=== PATIENT | male | born 1940 | race Caucasian/White ===

== ENCOUNTER → 2024-02-14 09:35 | Outpatient (REF) | payer MEDICARE, BC, SELFPAY ==
[2024-02-14 10:31] LABS: Albumin 4.3 g/dl (3.5-5.0); Blood Urea Nitrogen 19 mg/dl (9-20); Calcium 9.1 mg/dl (8.4-10.2); Carbon Dioxide 24 mmol/L (22-30); Chloride 106 mmol/L (98-107); Glucose 216 mg/dl (70-99); Phosphorus 4.1 mg/dl (2.5-4.5); Potassium 4.5 mmol/L (3.5-5.1); Sodium 137 mmol/L (135-145); eGFR 46.19
== END ==
LOC: REG 09:35
PROVIDERS: ATTENDING PHYSICIAN Internal Medicine; FAMILY PHYSICIAN Family Medicine
DX: N18.30 Chronic kidney disease, stage 3 unspecified (principal)
CPT/HCPCS: 36415; 80069

== ENCOUNTER → 2024-02-16 12:55 | Outpatient (REF) | payer MEDICARE, BC, SELFPAY ==
[2024-02-16 15:05] LABS: Protein/creatinine Ratio 0.4; Urine Protein 33 mg/dl
[2024-02-19 21:48] LABS: 24 Hour Urine Total Volume Random mL; Urine Collection Length Random hr; Urine Free Kappa Light Chains 251.99 mg/L (0.00-32.90)
== END ==
LOC: REG 12:55
PROVIDERS: ATTENDING PHYSICIAN Internal Medicine; FAMILY PHYSICIAN Family Medicine
DX: N18.30 Chronic kidney disease, stage 3 unspecified (principal)
CPT/HCPCS: 82570; 83521; 84156; 86335

== ENCOUNTER → 2024-04-23 09:46 | Outpatient (REF) | payer MEDICARE, BC, SELFPAY ==
[2024-04-23 12:57] LABS: % Eosinophils 2.2 % (0-6); % Immature Granulocytes 0.5 % (0-0.5); % Lymphocytes 27.5 % (20.5-51.1); % Monocytes 10.3 % (1.7-9.3); % Neutrophils 58.5 % (42.2-75.2); Absolute Basophils 0.1 10^3/uL (0-0.2); Absolute Eosinophils 0.1 10^3/uL (0-0.7); Absolute Lymphocytes 1.7 10^3/uL (1.2-3.4); Absolute Monocytes 0.6 10^3/uL (0.1-0.6); Absolute Neutrophils 3.5 10^3/uL (1.4-6.5); Hematocrit 33.1 % (39.0-52.0); Hemoglobin 11.4 g/dL (13.0-18.0); Mean Corp Hgb Conc. 34.4 g/dL (33.0-37.0); Mean Corpuscular Hgb 31.1 pg (27.0-31.0); Mean Corpuscular Volume 90.4 fL (80.0-94.0); Mean Platelet Volume 9.5 fL (7.4-10.4); Nucleated Red Blood Cells % 0 % (-); Platelet Count 198 10^3/uL (130-400); Red Blood Cell Count 3.66 10^6/uL (4.70-6.10); Red Cell Dist. Width 13.2 % (11.5-14.5)
[2024-04-23 13:30] LABS: ALT (SGPT) 31 U/L (0-50); AST (SGOT) 32 U/L (17-59); Alkaline Phosphatase 64 U/L (38-126); Blood Urea Nitrogen 22 mg/dl (9-20); Calcium 9.3 mg/dl (8.4-10.2); Carbon Dioxide 24 mmol/L (22-30); Chloride 107 mmol/L (98-107); Glucose 158 mg/dl (70-99); HDL Cholesterol 37 mg/dl; LDL Cholesterol, Calculated 11 mg/dl; Phosphorus 3.9 mg/dl (2.5-4.5); Potassium 4.4 mmol/L (3.5-5.1); Sodium 139 mmol/L (135-145); Total Bilirubin 0.6 mg/dl (0.2-1.3); Total Cholesterol 63 mg/dl (50-199); Total Protein 6.9 g/dl (6.3-8.2); Triglyceride 77 mg/dl (10-149); Very Low Density Lipoprotein 15 mg/dl (0-30); eGFR 50.18
[2024-04-23 14:02] LABS: TSH Reflex To Free T4 1.61 uIU/ml (0.47-4.68)
[2024-04-23 14:24] LABS: Glycohemoglobin (HgbA1c) 7.9 % (4.0-5.6)
== END ==
LOC: HWLAB 09:46
PROVIDERS: ATTENDING PHYSICIAN Internal Medicine; FAMILY PHYSICIAN Physician Assistant Medical
DX: E11.65 Type 2 diabetes mellitus with hyperglycemia (principal); I12.9 Hypertensive chronic kidney disease with stage 1 through stage 4 chronic kidney disease, or unspecified chronic kidney disease; E78.5 Hyperlipidemia, unspecified; N18.31 Chronic kidney disease, stage 3a; I25.10 Atherosclerotic heart disease of native coronary artery without angina pectoris; D64.9 Anemia, unspecified; I10 Essential (primary) hypertension
CPT/HCPCS: 36415; 80053; 80061; 83036; 84100; 84443; 85025

== ENCOUNTER → 2024-07-17 09:59 | Outpatient (REF) | payer MEDICARE, BC, SELFPAY ==
[2024-07-17 11:13] LABS: % Basophils 0.8 % (0-2); % Immature Granulocytes 0.3 % (0-0.5); % Lymphocytes 20.9 % (20.5-51.1); Absolute Basophils 0.1 10^3/uL (0-0.2); Absolute Eosinophils 0.1 10^3/uL (0-0.7); Absolute Lymphocytes 1.3 10^3/uL (1.2-3.4); Absolute Monocytes 0.5 10^3/uL (0.1-0.6); Absolute Neutrophils 4.1 10^3/uL (1.4-6.5); Hematocrit 34.1 % (39.0-52.0); Hemoglobin 11.8 g/dL (13.0-18.0); Mean Corp Hgb Conc. 34.6 g/dL (33.0-37.0); Mean Corpuscular Hgb 32.1 pg (27.0-31.0); Mean Corpuscular Volume 92.7 fL (80.0-94.0); Mean Platelet Volume 9.2 fL (7.4-10.4); Nucleated Red Blood Cells % 0 % (-); Platelet Count 177 10^3/uL (130-400); Red Blood Cell Count 3.68 10^6/uL (4.70-6.10); Red Cell Dist. Width 13.3 % (11.5-14.5); Reticulocyte Count 1.3 % (0.4-2.8)
[2024-07-17 11:39] LABS: C-Reactive Protein < 5.00 mg/L (0.0-10.00)
[2024-07-17 11:39] LABS: ALT (SGPT) 21 U/L (0-50); AST (SGOT) 25 U/L (17-59); Alkaline Phosphatase 62 U/L (38-126); Blood Urea Nitrogen 17 mg/dl (9-20); Calcium 9.6 mg/dl (8.4-10.2); Carbon Dioxide 24 mmol/L (22-30); Chloride 107 mmol/L (98-107); Direct Bilirubin 0.2 mg/dl (0.0-0.4); Glucose 115 mg/dl (70-99); Iron 91 ug/dl (49-181); LDH 198 U/L (120-246); Phosphorus 3.5 mg/dl (2.5-4.5); Potassium 4.3 mmol/L (3.5-5.1); Sodium 141 mmol/L (135-145); Total Bilirubin 0.7 mg/dl (0.2-1.3); Total Protein 6.6 g/dl (6.3-8.2); eGFR 50.18
[2024-07-17 11:49] LABS: Percent Saturation 30 % (20-50); Total Iron Binding Capacity 300 ug/dl (261-462)
[2024-07-17 11:55] LABS: Urine Protein 64 mg/dl (0-12)
[2024-07-17 12:15] LABS: Ferritin 25.8 ng/ml (17.9-464.0)
[2024-07-17 12:37] LABS: Erythrocyte Sed Rate 17 mm/hour (0-20)
[2024-07-17 12:46] LABS: Folate > 20.0 ng/ml (2.76-20); Vitamin B12 756 pg/ml (239-931)
[2024-07-19 00:07] LABS: Erythropoietin (EPO) 20 mU/mL (4-27)
[2024-07-19 06:50] LABS: Beta-2-Microglobulin 4.2 mg/L (<=3.0)
[2024-07-19 07:05] LABS: Haptoglobin 151 mg/dL (30-200)
[2024-07-19 09:39] LABS: ANA, IgG Reflex to HEp-2 None Detected (None Detected)
== END ==
LOC: REG 09:59
PROVIDERS: ATTENDING PHYSICIAN Nurse Practitioner Adult Health; FAMILY PHYSICIAN Physician Assistant Medical; REFERRING PHYSICIAN Internal Medicine
DX: N18.30 Chronic kidney disease, stage 3 unspecified (principal); D64.9 Anemia, unspecified; N18.9 Chronic kidney disease, unspecified; Z79.899 Other long term (current) drug therapy
CPT/HCPCS: 36415; 80053; 82232; 82248; 82570; 82607; 82668; 82728; 82746; 82784; 83010; 83521; 83540; 83550; 83615; 84100; 84155; 84156; 84165; 85025; 85045; 85652; 86038; 86140; 86334; 86880

== ENCOUNTER → 2024-07-19 12:42 | Outpatient (REF) | payer MEDICARE, BC, SELFPAY ==
[2024-07-19 13:47] LABS: 24 Hour Urine Total Volume 1000 ml
[2024-07-19 15:10] LABS: Urine Protein 48 mg/dl (0-12)
== END ==
LOC: REG 12:42
PROVIDERS: ATTENDING PHYSICIAN Nurse Practitioner Adult Health
DX: D64.9 Anemia, unspecified (principal); N18.9 Chronic kidney disease, unspecified
CPT/HCPCS: 81050; 84156

== ENCOUNTER 2024-10-26 18:11 | Emergency (ER) | payer MEDICARE, BC, SELFPAY ==
[2024-10-26 18:18] VITALS: BP 130/58
[2024-10-26 20:35] VITALS: BMI 26.8
--- NOTE | 2024-10-26 20:55 | ED.GENMED ---
History of Present Illness
General
Chief Complaint: Musculo-Skeletal Complaint
Source: patient
Time Seen by Provider: 10/26/24 20:45
History of Present Illness
History of Present Illness:
83-year-old male presents to the emergency room complaining of pain in the right knee. Patient states he was stepping up stairs when his right knee gave out. He also heard a crack. He has been having difficulty weightbearing due to pain since
then. No fever or chills. No other injuries. Patient does note he has been having some discomfort of this knee for the past 2 or 3 weeks. His primary care doctor suggested that he may have a meniscus injury at that time. This is the first time
his knee is actually giving out however.
Past History
Past History
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
ED Past Surgical History: Appendectomy, Cardiac (Stents X 4, Loop recorder) and Other (Brain mass right frontal)
Social History
Tobacco: Former smoker
Alcohol: None
Drug: None
Personal:
Living: alone
Phy Exam
Physical Exam
Physical Exam:
General: Awake, Alert, Oriented X3. No acute distress.
Vitals: unremarkable
Head: Atraumatic
Eyes: Pupils equal, EOMI
Throat: Airway intact, no exudates
Neck: Trachea midline
Neuro: Nonfocal
Skin: Warm, dry, no rash
Extremities: pulses equal b/l, no edema, no effusion noted to the right leg. Examination of the posterior thigh does not reveal any bulging or swollen area to suggest muscle tear. There is no pain to palpation of the calf. There is some pain with
flexion extension over the lateral aspect of the knee.
Course
Orders/Labs/Results
Orders:
Orders
10/26/24 18:21
Knee, Right 4 or More Views [CR Knee- Right 4 Or More View*] Urgent
Comment:
Reason For Exam: pain
10/26/24 18:22
Tibia/Fibula, Right 2 View [CR Leg Tibia/fibula Right 2 Vw] Urgent
Comment:
Reason For Exam: pain
10/26/24 20:58
Knee Immobilizer Right-Treatme ONCE
Acetaminophen [Tylenol] 1,000 mg PO NOW STA
Vital Signs
Initial and Last Documented VS:
Initial Vital Signs
Temp Pulse Resp BP Pulse Ox
97.5 F 63 16 130/58 98
10/26/24 18:18 10/26/24 18:18 10/26/24 18:18 10/26/24 18:18 10/26/24 18:18
Last Documented Vital Signs
Temp Pulse Resp BP Pulse Ox
97.5 F 63 16 130/58 98
10/26/24 18:18 10/26/24 18:18 10/26/24 18:18 10/26/24 18:18 10/26/24 20:35
MDM/Problems Addressed
Differential Diagnosis Includes:
Fracture, muscle tear, meniscus injury
MDM/Problems Addressed:
Physical exam does not reveal a significant effusion. Imaging shows DJD but no other abnormalities. The overall presentation seems most consistent with a meniscal injury. Patient placed in a knee immobilizer. Recommend follow-up with Ortho. No
NSAIDs given his use of Brilinta and aspirin.
*Radiology
Radiology exam reviewed: radiology read reviewed
*Critical Care Note
Total Time (30-74mins, 75-104mins- exclusive of procedures): Not Applicable
ED Attending Note
-
Portions of this chart may have been created with voice recognition software.� Occasional wrong word or��sound alike� substitutions may have occurred due to the inherent limitations of voice recognition software.
Discharge Plan
Departure
Patient Disposition: Home (Routine Discharge)
Date of Disposition: 10/26/24
Time of Disposition: 20:56
Patient with high blood pressure during this ER visit?: No
Condition: Good
Discharge Problem:
Knee joint pain
Instructions: Knee Immobilizer (DC), Knee Pain (DC)
Prescriptions:
No Action
glipizide 5 MG tablet
5 mg PO BID
sitagliptin phos-metformin [Janumet] 1 EACH tablet
1 tab PO BID
rosuvastatin 20 MG tablet
20 mg PO QPM
carvedilol 6.25 MG tablet
6.25 mg PO BID Qty: 60 0RF
isosorbide mononitrate 30 MG tablet extended release 24 hr
30 mg PO DAILY Qty: 30 0RF
nifedipine 30 MG tablet extended release
30 mg PO DAILY Qty: 30 0RF
aspirin 81 MG tablet,delayed release (DR/EC)
81 mg PO DAILY 0RF
ticagrelor [Brilinta] 90 MG tablet
90 mg PO BID Qty: 60 0RF
Referrals:
Fermin Melvin MD [Active] -
Activity Restrictions/Additional Instructions:
I believe your knee buckling and knee pain is related to a meniscus issue. You should follow-up with Dr. Melvin. We have provided you with a knee immobilizer which I would wear while you are awake for the next 2 or 3 days. Weight-bear as
tolerated. He may benefit from using a walker to help take some weight off of that leg.
Interventions
Interventions:
*Risk Screen - Suicide Last Done: 10/26/24 20:35
*General Assessment Last Done: 10/26/24 20:35
*Neglect/Abuse Screening Last Done: 10/26/24 20:35
ED- Fall Risk Assessment Last Done: 10/26/24 20:35
*ED COVID-19 Vaccine History Last Done: 10/26/24 20:35
*Nursing Disposition Last Done: 10/26/24 21:28
ED-Musculoskeletal Assessment Last Done: 10/26/24 20:35
Discharge Date and Time
Discharge Date/Time: 10/26/24 21:29
Print Language: SWAZI
[2024-10-26] MEDS: TYLENOL 1000 MG PO (21:04)
== END 2024-10-26 21:29 | disposition home or self-care (01) ==
LOC: EMR 18:11
PROVIDERS: EMERGENCY PHYSICIAN Emergency Medicine; FAMILY PHYSICIAN Physician Assistant Medical
DX: S89.91XA Unspecified injury of right lower leg, initial encounter (principal); X50.1XXA Overexertion from prolonged static or awkward postures, initial encounter; I25.10 Atherosclerotic heart disease of native coronary artery without angina pectoris; E11.9 Type 2 diabetes mellitus without complications; I10 Essential (primary) hypertension; E78.00 Pure hypercholesterolemia, unspecified; I25.2 Old myocardial infarction; Z86.73 Personal history of transient ischemic attack (TIA), and cerebral infarction without residual deficits; Z87.891 Personal history of nicotine dependence; Z95.5 Presence of coronary angioplasty implant and graft; Z90.49 Acquired absence of other specified parts of digestive tract; Z79.01 Long term (current) use of anticoagulants; Z79.82 Long term (current) use of aspirin
CPT/HCPCS: 29505; 99283; 73564; 73590

== ENCOUNTER → 2024-11-07 10:49 | Outpatient (REF) | payer MEDICARE, BC, SELFPAY | LOC: PAVMRI 10:49 | PROVIDERS: ATTENDING PHYSICIAN Orthopaedic Surgery; FAMILY PHYSICIAN Physician Assistant Medical | DX: M25.861 Other specified joint disorders, right knee (principal) | CPT/HCPCS: 73721 ==

== ENCOUNTER → 2024-12-09 09:30 | Outpatient (REF) | payer MEDICARE, BC, SELFPAY ==
[2024-12-09 12:40] LABS: % Basophils 0.8 % (0-2); % Eosinophils 2.2 % (0-6); % Immature Granulocytes 0.2 % (0-0.5); % Neutrophils 66.8 % (42.2-75.2); Absolute Basophils 0.1 10^3/uL (0-0.2); Absolute Eosinophils 0.1 10^3/uL (0-0.7); Absolute Lymphocytes 1.4 10^3/uL (1.2-3.4); Absolute Monocytes 0.5 10^3/uL (0.1-0.6); Absolute Neutrophils 4.3 10^3/uL (1.4-6.5); Hematocrit 34.1 % (39.0-52.0); Hemoglobin 11.3 g/dL (13.0-18.0); Mean Corp Hgb Conc. 33.1 g/dL (33.0-37.0); Mean Corpuscular Hgb 31.4 pg (27.0-31.0); Mean Corpuscular Volume 94.7 fL (80.0-94.0); Mean Platelet Volume 9.2 fL (7.4-10.4); Nucleated Red Blood Cells % 0 % (-); Platelet Count 200 10^3/uL (130-400); White Blood Cell Count 6.5 10^3/uL (4.8-10.8)
[2024-12-09 12:52] LABS: ALT (SGPT) 20 U/L (0-50); AST (SGOT) 26 U/L (17-59); Alkaline Phosphatase 68 U/L (38-126); Blood Urea Nitrogen 31 mg/dl (9-20); Carbon Dioxide 24 mmol/L (22-30); Chloride 102 mmol/L (98-107); Glucose 154 mg/dl (70-99); Potassium 4.1 mmol/L (3.5-5.1); Sodium 138 mmol/L (135-145); Total Bilirubin 0.7 mg/dl (0.2-1.3); Total Protein 6.8 g/dl (6.3-8.2); eGFR 54.51
[2024-12-09 13:21] LABS: Urine Albumin Trace (Neg - Trace); Urine Bilirubin Negative (Negative); Urine Character Clear (Clear); Urine Color Yellow; Urine Glucose 3+ (Negative); Urine Ketone Negative (Negative); Urine Leukocyte Negative (Negative); Urine Nitrite Negative (Negative); Urine Occult Blood Negative (Negative); Urine Urobilinogen Negative (Neg - 1+)
[2024-12-09 14:04] LABS: Protein/creatinine Ratio 0.2; Urine Protein 20 mg/dl
[2024-12-11 10:38] LABS: Intact PTH 68.1 pg/ml (13.6-85.8)
== END ==
LOC: HWLAB 09:30
PROVIDERS: ATTENDING PHYSICIAN Internal Medicine; FAMILY PHYSICIAN Physician Assistant Medical
DX: I10 Essential (primary) hypertension (principal); N18.30 Chronic kidney disease, stage 3 unspecified; E11.65 Type 2 diabetes mellitus with hyperglycemia; I12.9 Hypertensive chronic kidney disease with stage 1 through stage 4 chronic kidney disease, or unspecified chronic kidney disease
CPT/HCPCS: 36415; 80053; 81003; 82570; 83036; 83970; 84100; 84156; 85025

== ENCOUNTER → 2025-01-12 10:12 | Outpatient (REF) | payer MEDICARE, BC, SELFPAY ==
[2025-01-12 17:11] LABS: Urine Albumin 2+ (Neg - Trace); Urine Bilirubin Negative (Negative); Urine Character Clear (Clear); Urine Color Yellow; Urine Glucose 4+ (Negative); Urine Ketone Negative (Negative); Urine Leukocyte Negative (Negative); Urine Nitrite Negative (Negative); Urine Occult Blood Negative (Negative); Urine Urobilinogen Negative (Neg - 1+)
[2025-01-12 17:34] LABS: Urine Squamous Cell 0-2 /LPF (Few)
[2025-01-12 17:35] LABS: Urine Red Blood Cell 0-2 /HPF (0-2); Urine White Cell 0-2 /HPF (0-5)
== END ==
LOC: HWLAB 10:12
PROVIDERS: ATTENDING PHYSICIAN Physician Assistant Medical
DX: R42 Dizziness and giddiness (principal)
CPT/HCPCS: 81003; 81015

== ENCOUNTER → 2025-06-02 11:33 | Outpatient (REF) | payer MEDICARE, BC, SELFPAY ==
[2025-06-02 15:25] LABS: Albumin 4.0 g/dl (3.5-5.0); Blood Urea Nitrogen 25 mg/dl (9-20); Calcium 9.4 mg/dl (8.4-10.2); Carbon Dioxide 25 mmol/L (22-30); Chloride 110 mmol/L (98-107); Glucose 174 mg/dl (70-99); Potassium 4.4 mmol/L (3.5-5.1); Sodium 141 mmol/L (135-145); eGFR > 60.00
== END ==
LOC: HWLAB 11:33
PROVIDERS: ATTENDING PHYSICIAN Internal Medicine; FAMILY PHYSICIAN Physician Assistant Medical
DX: I10 Essential (primary) hypertension (principal); N18.30 Chronic kidney disease, stage 3 unspecified; E11.9 Type 2 diabetes mellitus without complications; D64.9 Anemia, unspecified
CPT/HCPCS: 80069; 82570; 84156

== ENCOUNTER → 2025-06-30 10:47 | Outpatient (REF) | payer MEDICARE, BC, SELFPAY ==
[2025-06-30 15:28] LABS: Hematocrit 37.3 % (39.0-52.0); Hemoglobin 12.2 g/dL (13.0-18.0); Mean Corp Hgb Conc. 32.7 g/dL (33.0-37.0); Mean Corpuscular Volume 93.0 fL (80.0-94.0); Nucleated Red Blood Cells % 0 % (-); Platelet Count 187 10^3/uL (130-400); Red Cell Dist. Width 13.1 % (11.5-14.5)
[2025-06-30 15:32] LABS: ALT (SGPT) 29 U/L (0-50); AST (SGOT) 29 U/L (17-59); Albumin 4.3 g/dl (3.5-5.0); Alkaline Phosphatase 65 U/L (38-126); Blood Urea Nitrogen 20 mg/dl (9-20); Calcium 9.2 mg/dl (8.4-10.2); Carbon Dioxide 26 mmol/L (22-30); Chloride 106 mmol/L (98-107); Glucose 75 mg/dl (70-99); HDL Cholesterol 35 mg/dl; Iron 87 ug/dl (49-181); LDL Cholesterol, Calculated 26 mg/dl; Potassium 4.4 mmol/L (3.5-5.1); Sodium 140 mmol/L (135-145); Total Protein 7.1 g/dl (6.3-8.2); Very Low Density Lipoprotein 19 mg/dl (0-30); eGFR > 60.00
[2025-06-30 15:41] LABS: Total Iron Binding Capacity 322 ug/dl (261-462)
[2025-06-30 15:42] LABS: Microalb - Urine Creatinine 132.100 mg/dl
[2025-06-30 15:47] LABS: Microalbumin, Random Urine 7.9 mg/dl (0.6-1.7)
[2025-06-30 15:49] LABS: Vitamin D, 25-OH*** 39.8 ng/mL (30-80)
[2025-06-30 16:06] LABS: Ferritin 25.4 ng/ml (17.9-464.0)
[2025-06-30 16:38] LABS: Folate > 20.0 ng/ml (2.76-20); Vitamin B12 327 pg/ml (239-931)
[2025-07-01 09:41] LABS: Glycohemoglobin (HgbA1c) 6.6 % (4.0-5.6)
== END ==
LOC: HWLAB 10:47
PROVIDERS: ATTENDING PHYSICIAN Physician Assistant Medical
DX: R53.83 Other fatigue (principal); R79.89 Other specified abnormal findings of blood chemistry; Z00.00 Encounter for general adult medical examination without abnormal findings; E11.65 Type 2 diabetes mellitus with hyperglycemia; I12.9 Hypertensive chronic kidney disease with stage 1 through stage 4 chronic kidney disease, or unspecified chronic kidney disease; I10 Essential (primary) hypertension; E78.5 Hyperlipidemia, unspecified; N18.31 Chronic kidney disease, stage 3a; I25.10 Atherosclerotic heart disease of native coronary artery without angina pectoris; D89.89 Other specified disorders involving the immune mechanism, not elsewhere classified; Z68.29 Body mass index [BMI] 29.0-29.9, adult; E66.3 Overweight; D51.0 Vitamin B12 deficiency anemia due to intrinsic factor deficiency
CPT/HCPCS: 36415; 80053; 80061; 82043; 82306; 82570; 82607; 82728; 82746; 83036; 83540; 83550; 84443; 85025

== ENCOUNTER 2025-10-17 19:57 | Emergency (ER) | payer MEDICARE, BC, SELFPAY ==
[2025-10-17 19:59] VITALS: BP 153/61
[2025-10-17 22:31] VITALS: BMI 27.3
[2025-10-17 22:33] VITALS: BP 151/77
[2025-10-17 22:36] VITALS: BP 151/77
--- NOTE | 2025-10-17 22:41 | ED.GENMED ---
History of Present Illness
General
Chief Complaint: Musculo-Skeletal Complaint
Source: patient and family
Exam Limitations: none
Time Seen by Provider: 10/17/25 22:17
Nursing documentation reviewed up to this point in time: agreed with
History of Present Illness
History of Present Illness:
84-year-old male with a past medical history hypertension, hyperlipidemia, CAD status post stents, diabetes who presents to the emergency department for evaluation of hip pain. Patient reports onset of symptoms yesterday overnight at around 2 AM�he
says he woke up and noticed it when he was going to the bathroom, symptoms have been constant since that time. Pain is located in the lateral left hip does not radiate. He reports pain is much worse with movement and ambulation. Somewhat better
at rest. He did take some Tylenol with little relief. He denies any associated fever. He denies any recent illness. He denies any trauma or injury although he does note that he was outside raking leaves the day prior to onset. Denies similar
symptoms in the past.
Past History
Past History
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
ED Past Surgical History: Appendectomy, Cardiac (Stents X 4, Loop recorder) and Other (Brain mass right frontal)
Social History
Tobacco: Former smoker
Alcohol: None
Drug: None
Personal:
Living: alone
Review of Systems
Review of Systems
All Other Systems: ROS reviewed and negative except as documented in HPI and ROS
Constitutional: Denies fever or chills
ABD/GI: Denies abdominal pain
Musculoskeletal: Reports joint pain; Denies edema
Phy Exam
Physical Exam
Physical Exam:
General: Awake, alert, oriented x3; no acute distress
Head: Normocephalic, atraumatic
Eyes: Conjunctiva normal
Throat: Airway intact, handling secretions
Neck: Trachea midline, moving freely without pain
Lungs: Breathing comfortably no distress
Heart: Regular rate
Neuro: Grossly intact
Skin: No rash noted
Extremities: Trace but symmetric edema in ankles bilaterally; good pulses throughout the lower extremities bilaterally�specifically has strong femoral, popliteal, DP and PT pulses in the left lower extremity; on exam of the left lateral hip he has
tenderness over the greater trochanteric but no erythema or warmth in the area; he does allow for full range of motion of the left hip he does have pain on the extreme of flexion and with abduction and adduction at the extremes
Scores
Heart Failure Risk
Heart Failure Risk Score: Not Applicable
Heart Score for Chest Pain Patients
STEMI patient?: Not applicable
Withdrawal Assessment of Alcohol
Withdrawal Assessment Completed?: Not applicable
Course
Orders/Labs/Results
Orders:
Orders
10/17/25 20:02
CR Hip - LT w/wo Pel 2-3 Vw* Urgent
Comment:
Reason For Exam: left hip pain
Include a pelvis x-ray?: Yes
Vital Signs
Initial and Last Documented VS:
Initial Vital Signs
Temp Pulse Resp BP Pulse Ox
36.6 C 68 18 153/61 98
10/17/25 19:59 10/17/25 19:59 10/17/25 19:59 10/17/25 19:59 10/17/25 19:59
Last Documented Vital Signs
Temp Pulse Resp BP Pulse Ox
36.6 C 62 18 151/77 97
10/17/25 19:59 10/17/25 22:32 10/17/25 22:32 10/17/25 22:36 10/17/25 22:30
MDM/Problems Addressed
Differential Diagnosis Includes:
Fracture, bursitis, tendinitis, osteoarthritis; low suspicion for septic arthritis clinically
MDM/Problems Addressed:
84-year-old male with history as noted presents to the ER for evaluation of atraumatic left hip pain�woke up last night with pain and has been constant much worse with movement. He was raking the leaves the day prior to onset but no specific injury
noted. Hypertensive but otherwise normal vitals. Physical exam as noted. He had an x-ray of the hip in triage which showed no fracture but signs of osteoarthritis as well as some small calcifications adjacent to the greater trochanter (his area
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 Plan for supportive care�already took Tylenol without adequate improvement earlier in the day. He is unable to take NSAIDs as he is currently taking
Brilinta for his cardiac history and also has a history of CKD; he says that previously he has taken Tylenol with codeine with good pain control for orthopedic injuries. Can trial this here. Reassess after the above.
Chronic conditions affecting care:
CAD, CKD
Acute Exacerbation and/or Progression of Chronic Illness: HTN
*Radiology
Radiology exam reviewed: preliminary read by ED provider and radiology read reviewed
*Pulse Oximetry
SaO2: 97
Oxygen Mode of Delivery: Room air
Patient hypoxic: no (97%)
*Critical Care Note
Total Time (30-74mins, 75-104mins- exclusive of procedures): Not Applicable
Data Reviewed
Review of Other/Old Records Reveals: Records
Source: patient, records and family
ED Attending Note
-
Portions of this chart may have been created with voice recognition software.� Occasional wrong word or��sound alike� substitutions may have occurred due to the inherent limitations of voice recognition software.
Discharge Plan
Departure
Patient with high blood pressure during this ER visit?: Yes
Discharge Problem:
Calcific tendinitis of left hip
Instructions: Tendinopathy (DC)
Prescriptions:
New
acetaminophen-codeine 300-15 mg tablet
1 tab PO Q6H PRN (Reason: Pain) Qty: 14 0RF
No Action
glipizide 5 MG tablet
5 mg PO BID
sitagliptin phos-metformin [Janumet] 1 EACH tablet
1 tab PO BID
rosuvastatin 20 MG tablet
20 mg PO QPM
carvedilol 6.25 MG tablet
6.25 mg PO BID Qty: 60 0RF
isosorbide mononitrate 30 MG tablet extended release 24 hr
30 mg PO DAILY Qty: 30 0RF
nifedipine 30 MG tablet extended release
30 mg PO DAILY Qty: 30 0RF
aspirin 81 MG tablet,delayed release (DR/EC)
81 mg PO DAILY 0RF
ticagrelor [Brilinta] 90 MG tablet
90 mg PO BID Qty: 60 0RF
Referrals:
Randall Martinez MD [Active, Orthopedics] - Call in 1-3 days for appt
Activity Restrictions/Additional Instructions:
Thank you for visiting the Emergency Department at [facility].
1. Please schedule a follow up appointment as directed. Call first thing tomorrow morning to make an appointment.
2. If indicated, please take your medications as instructed and indicated on discharge paperwork.
3. If any of your symptoms do not improve, or persist, or become more severe within 6-12 hours, please return to the emergency department for further care.
4. Please return to the emergency department if you develop a headache, neck pain/stiffness, fever greater than 100.4F, chest pain, shortness of breath, persistent nausea, vomiting, slurred speech, difficulty walking, numbness/tingling, weakness,
signs of infection or any other symptoms that are worrisome to you.
Please call [phone] if you have any questions.
Interventions
Interventions:
*Risk Screen - Suicide Last Done: 10/17/25 22:30
*General Assessment Last Done: 10/17/25 19:59
*Neglect/Abuse Screening Last Done: 10/17/25 22:30
*ED- Fall Risk Assessment Last Done: 10/17/25 22:30
*ED COVID-19 Vaccine History Last Done: 10/17/25 22:30
*ED Influenza Vaccine History Last Done: 10/17/25 22:30
ED-Musculoskeletal Assessment Last Done: 10/17/25 22:37
Discharge Date and Time
Print Language: SYRIAN
[2025-10-17 23:00] VITALS: BP 141/53
[2025-10-17] MEDS: TYLENOL #3 1 TABLET PO (23:06)
== END 2025-10-17 23:20 | disposition home or self-care (01) ==
LOC: EMR 19:57
PROVIDERS: EMERGENCY PHYSICIAN Emergency Medicine; FAMILY PHYSICIAN Physician Assistant Medical
DX: M65.28 Calcific tendinitis, other site (principal); E78.00 Pure hypercholesterolemia, unspecified; E11.22 Type 2 diabetes mellitus with diabetic chronic kidney disease; I12.9 Hypertensive chronic kidney disease with stage 1 through stage 4 chronic kidney disease, or unspecified chronic kidney disease; N18.9 Chronic kidney disease, unspecified; I25.10 Atherosclerotic heart disease of native coronary artery without angina pectoris; Z86.73 Personal history of transient ischemic attack (TIA), and cerebral infarction without residual deficits; Z87.891 Personal history of nicotine dependence; Z95.5 Presence of coronary angioplasty implant and graft; Z90.49 Acquired absence of other specified parts of digestive tract; Z79.01 Long term (current) use of anticoagulants
CPT/HCPCS: 99283; 73502